=== PATIENT | female | born 1955 | race Caucasian/White ===

== ENCOUNTER 2017-06-19 08:10 | Day surgery (SDC) | payer MEDICARE, SELFPAY ==
--- NOTE | 2017-06-19 | EGD_PTH ---
PATIENT: SIMA PITTMAN LOC: EN U#:[id number] AGE/SX: 62/F ROOM: RE06/19/[address]: Dr. Keshawn Matos MD : 1955 BED: DIS: 06/19/2017 SPEC #: [id number] RECD: 06/19/17 14:05 STATUS: NADINE EDUAR #: [id number] MAYRA: 06/19/17 00:[address]: Keshawn Matos DEPT: SURGICAL PATHOLOGY RECD BY: Efren Herrera ENTERED: 06/19/17 14:06 SP TYPE: EGD BIOPSY DO DR: Dr. Cody Perez MD Tissues: A - Small intestine biopsy B - COLON BIOPSY Procedures: Surgery Specimen Level IV HEADER OPERATION: EGD, colonoscopy PRE-OP DIAGNOSIS: Abdominal pain, nausea, bloating TISSUE SUBMITTED: A ? Small bowel biopsy, B ? Random colon biopsies MICROSCOPIC DIAGNOSIS A. Small bowel biopsy: Fragments of small intestinal mucosa, no pathologic diagnosis. B. Colon, random biopsy: Focal acute colitis. See microscopic description and comment. SJ:marisela 06/20/17 COMMENT B. Clinical correlation and appropriate follow-up are suggested as clinically indicated. MICROSCOPIC DESCRIPTION Slides are reviewed. B. The specimen shows fragments of colonic mucosa with acute and chronic inflammatory cell infiltrates in the lamina propria, cryptitis and crypt abscesses. Glandular distortion and granulomas are not seen. The finding of focal acute colitis is usually an incidental finding. Rarely can it be associated with infectious, self limited colitis or inflammatory bowel disease. GROSS DESCRIPTION A - Received in fixative is one container labeled with the patient's name and designated small bowel biopsy. The specimen consists of two irregular fragments of light bryant soft tissue that in aggregate measure 0.6 x 0.3 x 0.1 cm. The specimen is totally submitted in one cassette. B - Received in fixative is one container labeled with the patient's name and designated random colon biopsy. The specimen consists of multiple irregular fragments of light bryant soft tissue that in aggregate measure 2 x 0.5 x 0.1 cm. The specimen is totally submitted in one cassette. / ELVIN:marisela 06/19/17 TC:2 CPT: 96667 x2
[2017-06-19 08:32] VITALS: BP 123/83; PULSE 72; RESP 16; TEMP 36.5; O2SAT 94; BMI 48.6
[2017-06-19 08:51] LABS: Bedside Glucose 191 mg/dL (70-110)
--- NOTE | 2017-06-19 10:07 | PCM.OPRPT ---
Problem List (1) Epigastric pain Status: Acute (2) Abdominal bloating Status: Acute (3) Nausea Status: Acute (4) Personal history of colonic polyps Status: Acute Report of Operation Date of Procedure: 06/19/17 Pre-Operative Diagnosis: Z86.010 personal history of colonic polyps. R1 0.13 epigastric abdominal pain. R14.0 abdominal bloating. R11.0 nausea Post-Operative Diagnosis: Same Surgery/Procedure Performed:: 32364 esophagogastroduodenoscopy [place] biopsy. 72035 colonoscopy with random colonic biopsies Type of Anesthesia:: MAC Anesthesiologist: Joey Ndiaye Description of Procedure: Back of the throat was sprayed with Cetacaine spray. A bite-block was placed. Patient was placed in the left lateral decubitus position. The patient was given graded anesthesia the scope was inserted in the back of the oropharynx and directed down through the esophagus into the stomach and into the duodenum without difficulty. Operative findings: 1. Duodenum: Normal appearance no mass lesions no ulcerations biopsy for celiac sprue was obtained 2. Stomach: Normal appearance minimal erythema was identified biopsy for H. pylori was obtained there were no ulcers there were no mass lesions patient had a normal prepyloric area. Retroflexion did not show any signs of a hiatal hernia. 3. Esophagus: Normal appearance no mass lesions no signs of esophagitis Scope was inserted into the rectum. The scope was directed through the sigmoid colon, descending colon, transverse colon, ascending colon, to the cecum. Operative findings: 1. Cecum: Normal appearance no mass lesions normal ileocecal valve. 2. Ascending colon: Normal appearance no mass lesions. 3. Transverse colon: Normal appearance no mass lesions. 4. descending colon: Normal appearance no mass lesions. 5. Sigmoid colon: Normal appearance no mass lesions. 6. Rectum: Normal appearance no mass lesions retroflexion did show some internal hemorrhoids no masses are identified. Digital rectal exam was performed showing no masses within the anus. Random colonic biopsies were performed. All of the mucosa throughout the colon looked normal. Patient will need to have another colonoscopy in 10 years. I will see the patient back in 1 week to go over the biopsies of both the small intestine and the colon. - Admit VTE Documentation VTE Present on Admission: No VTE Mechan Device Prophylaxis: None VTE Pharm Prophylaxis ordered?: No
[2017-06-19 10:10] VITALS: BP 123/83; BP 127/89; PULSE 73; RESP 16; TEMP 36.6; O2SAT 94
[2017-06-19 10:15] VITALS: BP 103/60; BP 123/83; PULSE 71; RESP 16; O2SAT 93
[2017-06-19 10:20] VITALS: BP 107/65; BP 123/83; PULSE 70; RESP 16; O2SAT 92
--- NOTE | 2017-06-19 10:20 | NURSING ---
pt passed flatus, turned to left lateral lying position, abd soft at this time, states less bloated.
[2017-06-19 10:25] VITALS: BP 112/53; BP 123/83; PULSE 68; RESP 16; TEMP 36.3; O2SAT 93
[2017-06-19 10:49] VITALS: BP 123/83
== END 2017-06-19 10:55 | disposition home or self-care (01) ==
LOC: EN 08:11 → AC 08:12
PROVIDERS: Family Provider Family Medicine; PCP Family Medicine; Visit Provider Surgery
PROC: 0DJD8ZZ Inspection of Lower Intestinal Tract, Via Natural or Artificial Opening Endoscopic (ICD-10-PCS; CPT 45378; principal; 2017-06-19 09:55)
DX: K52.9 Noninfective gastroenteritis and colitis, unspecified (principal); K58.9 Irritable bowel syndrome, unspecified; E11.9 Type 2 diabetes mellitus without complications; I10 Essential (primary) hypertension; E03.9 Hypothyroidism, unspecified; E78.5 Hyperlipidemia, unspecified; M79.7 Fibromyalgia; K21.9 Gastro-esophageal reflux disease without esophagitis; E66.9 Obesity, unspecified; F32.9 Major depressive disorder, single episode, unspecified; Z78.0 Asymptomatic menopausal state; Z79.899 Other long term (current) drug therapy; Z86.010 Personal history of colon polyps; Z79.84 Long term (current) use of oral hypoglycemic drugs; Z79.82 Long term (current) use of aspirin; Z90.49 Acquired absence of other specified parts of digestive tract; Z90.710 Acquired absence of both cervix and uterus; Z87.891 Personal history of nicotine dependence
CPT/HCPCS: 43239; 45380; 82962; 88305; J7120; J1610

== ENCOUNTER → 2017-06-29 08:56 | Outpatient (CLI) | payer MEDICARE, SELFPAY ==
[2017-06-22 12:46] LABS: Platelet Count 251 K/mm3 (150-450)
[2017-06-22 12:54] LABS: Partial Thromboplast Time 25.1 Seconds (24.1-36.2)
--- NOTE | 2017-06-29 | LIV_PTH ---
PATIENT: SIMA PITTMAN LOC: CT U#:[id number] AGE/SX: 69/F ROOM: RE06/29/[address]: Chanell Benjamin : 1955 BED: DIS: SPEC #: [id number] RECD: 06/29/17 14:24 STATUS: NADINE EDUAR #: [id number] MAYRA: 06/29/17 00:[address]: Chanell Benjamin DEPT: SURGICAL PATHOLOGY RECD BY: Efren Herrera ENTERED: 06/29/17 14:24 SP TYPE: LIVER RES OTHR DR: Dr. Cody Perez MD Tissues: Liver, NOS Procedures: PAS with Diastase (control) Trichrome (control) Special Stain Group II FE Group II (charge) PAS Stain (control) Surgery Specimen Level V Retic (control) HEADER OPERATION: CT-guided liver biopsy PRE-OP DIAGNOSIS: Cirrhosis TISSUE SUBMITTED: 18g core x3, right lobe liver MICROSCOPIC DIAGNOSIS Liver, CT-guided needle core biopsy: Cirrhosis. Mild to moderate steatosis, microvesicular and macrovesicular. Chronic hepatitis, grade 2. AM:marisela 07/04/17 COMMENT Case has been reviewed in consultation with Dr. Randle who concurs with the above diagnosis. IDC:ELVIN MICROSCOPIC DESCRIPTION Slides are reviewed. Sections show a cirrhotic liver confirmed by trichrome stain with matched control. PAS with and without diastase does not reveal accumulation of abnormal proteins. Iron stain with matched control does not reveal intraparenchymal deposition of iron. Reticulin stain reveals nodular collection of hepatocytes surrounded by increased dense bands of reticulin fibers consistent with cirrhosis; matched control is appropriate. GROSS DESCRIPTION Received in fixative is one container labeled with the patient's name and designated right lobe liver. The specimen consists of three elongated fragments of bryant soft tissue each measuring 1.8 cm in length and 0.1 cm in diameter. The specimen is totally submitted in one cassette. / ELVIN:marisela 06/29/17 TC:3 CPT: 36756, 09292 x5
--- NOTE | 2017-06-29 09:00 | CT_ITS ---
PROCEDURE: CT GUIDED liver biopsy. DATE: June 29, 2017. INDICATION: Female, 62 years old. Cirrhosis. PHYSICIAN: Andrei Leary M.D. RADIATION DOSAGE (If Supplied By Facility): CTDIvol = ( 20.4 ) mGy, DLP = ( 399.49 ) mGycm. Individualized dose optimization techniques were utilized. PROCEDURE: The risks, benefits, and alternatives to the procedure were explained to the patient. The specific risk of hemorrhage requiring further treatment or intervention was detailed and accepted. Follow-up instructions were discussed with the patient as well. Written informed consent was obtained. The patient was brought into the CT suite and placed in the supine position. . An appropriate entry site was identified. The overlying skin was prepped and draped in the usual sterile fashion. 1% lidocaine was administered subcutaneously for local anesthesia. The patient received 2 mg of Versed and 50 mcg of fentanyl intravenously. The conscious sedation protocol was followed. Conscious sedation was started at 10:07 AM and terminated at 10:19 AM. The patient was independently monitored by the department nurse. Under CT guidance, a total of 3 passes were performed utilizing an 18-gauge core biopsy needle. The specimens were then placed in the appropriate fluid and transported to the laboratory for analysis. Hemostasis was obtained. The patient tolerated the procedure well without immediate complications. CT/Biopsy/Inj or Needle Placement IMPRESSION: Successful CT guided biopsy of the right lobe of the liver, as described above. Electronically Signed: Andrei Leary MD at 10:59 EST Tel [phone], Service support ,
[2017-06-29 09:09] VITALS: BP 149/56; PULSE 69; RESP 14; TEMP 36.9; O2SAT 95; BMI 42.9
[2017-06-29 11:44] VITALS: BP 112/68; PULSE 76; RESP 16; O2SAT 92
== END ==
PROVIDERS: Family Provider Family Medicine; PCP Family Medicine; Visit Provider Nurse Practitioner Adult Health
DX: K74.60 Unspecified cirrhosis of liver (principal); R93.5 Abnormal findings on diagnostic imaging of other abdominal regions, including retroperitoneum
CPT/HCPCS: 47000; 36415; 77012; 85049; 85610; 85730; 88307; 88313; 99156; J7040; A4216

== ENCOUNTER → 2017-12-22 20:28 | Outpatient (CLI) | payer MEDICARE, SELFPAY | PROVIDERS: Family Provider Family Medicine; PCP Family Medicine; Visit Provider Family Medicine | DX: G47.33 Obstructive sleep apnea (adult) (pediatric) (principal) | CPT/HCPCS: 95810 ==

== ENCOUNTER 2018-04-28 21:22 | Emergency (ER) | payer MEDICARE, SELFPAY ==
[2018-04-28 21:23] VITALS: BP 145/74; PULSE 89; RESP 15; TEMP 36.8; BMI 42.0
--- NOTE | 2018-04-28 21:48 | CT_ITS ---
STUDY: CT ABDOMEN AND PELVIS WITHOUT CONTRAST REASON FOR EXAM: Female, 62 years old. Nausea, status post gastric bypass surgery 3 weeks ago RADIATION DOSAGE (If Supplied By Facility): CTDIvol = ( 21.70 ) mGy, DLP = ( 1089.67 ) mGycm TECHNIQUE: Transaxial images were obtained from the dome of the diaphragm to the symphysis pubis without oral contrast, and without intravenous contrast. Sagittal and coronal images were reconstructed. Individualized dose optimization techniques were used for this CT. COMPARISON: None. FINDINGS: The visualized lung bases are unremarkable. The visualized portions of the heart are within normal limits. Scattered punctate calcifications of the liver are likely postinflammatory, doubtful significance. No hepatic masses. There are surgical clips in the gallbladder fossa consistent with a prior cholecystectomy. Normal spleen. Normal pancreas. Normal bilateral adrenal glands. 2.4 cm right renal cyst. Normal left kidney. Patient is status post Reese-en-Y gastric bypass surgery. Minimal amount of perigastric induration identified but no perigastric fluid collection or extraluminal air. Linear densities in the anterior abdominal wall compatible with laparoscopic port sites. Normal small intestine. Normal colon. The appendix is visualized and appears normal. There is diffuse atherosclerotic calcification of the abdominal aorta, without a demonstrated aneurysm. Normal inferior vena cava. Normal retroperitoneum. Normal urinary bladder. There is absence of the uterus consistent with a prior hysterectomy. Normal abdominal wall. Grade 1 spondylolisthesis of L4-L5 due to facet arthropathy. CT/Abdomen/Pelvis without Cont IMPRESSION: 1. Status post gastric bypass surgery. Expected operative changes. No extraluminal gas or focal fluid collection. 2. Cholecystectomy, hysterectomy. Electronically Signed: Fady Maddox MD at 23:33 EST , Service support ,
[2018-04-28] MEDS: Ondansetron 4 MG/2 ML Vial IV (21:54)
[2018-04-28] MEDS: 0.9% Normal Saline 1,000 ML 1000 ML IV (21:54)
[2018-04-28 22:10] LABS: Red Blood Cells-Urine 0 SEEN /hpf (0-5)
[2018-04-28 22:16] LABS: Color, Urine Yellow (Yellow); Glucose, Dipstick Normal (Normal); Ketone-Dipstick 15 mg/dl (Negative); Leukocyte Esterase-Dipstick 500 /ul (Negative); Nitrite-Dipstick Negative (Negative); Occult Blood-Urine Negative /ul (Negative); Protein-Dipstick 30 mg/dl (Negative); Urine Bilirubin Dipstick Negative (Negative); Urine Clarity Cloudy (Clear); Urine Urobilinogen 1 mg/dl (Normal)
[2018-04-28 22:23] LABS: Absolute Lymphocyte Count 1.74 X10^3/ul (0.83-4.51); Absolute Neutrophil Count 6.2 X10^3/uL (2.0-7.7); Basophil# 0.03 X10^3/uL; Basophil% 0.3 % (0-1); Eosinophil# 0.12 X10^3/uL; Eosinophils% 1.4 % (0-5); Hematocrit 41.6 % (37-47); Hemoglobin 13.1 g/dl (12.0-15.0); Lymphocyte # 1.74 X10^3/ul (4.0); Lymphocyte % 20.1 % (19-41); Mean Corp Hgb Conc 31.5 g/gl (32-36); Mean Corpuscular Hgb 25.2 pg (27.0-32.0); Monocyte# 0.51 X10^3/uL; Monocyte% 5.9 % (0-10); Neutrophil # 6.24 X10^3/uL (2.7-7.7); Neutrophil % 72.2 % (47-70); Platelet Count 235 K/mm3 (150-450); RBC Distribution Width CV 17.4 % (11.6-14.6); RBC Distribution Width SD 51.7 fl (35.1-43.9); White Blood Count 8.7 K/mm3 (4.4-11.0)
[2018-04-28 22:24] LABS: Differential Indicated SCAN CRITERIA MET; POSITIVE COUNT NO; POSITIVE DIFFERENTIAL NO; POSITIVE MORPHOLOGY YES
[2018-04-28 22:28] LABS: Calcium Oxalate Crystals Ur 2+ /hpf (<or=2+); Hyaline Cast 0-5 SEEN /lpf (0-5); Mucous, Urine RARE /hpf (<or=2+); Squamous Epithelial Cells - UA 5-10 SEEN /hpf (5-10); White Blood Cells 0-5 SEEN /hpf (0-5)
[2018-04-28 22:29] LABS: ALB/GLOB Ratio 0.8 RATIO (0.9-2.4); AST(SGOT) 44 U/L (15-37); Alanine Aminotransfer ALT/SGPT 78 U/L (13-56); Albumin, Serum 3.4 g/dL (3.2-5.0); Alkaline Phosphatase 100 U/L (45-117); Anion Gap 13 (5-15); BUN 20 mg/dL (7-18); BUN/Creat Ratio 27.6 RATIO (10-20); Calcium,Total 9.1 mg/dL (8.5-10.1); Chloride 105 mmol/L (98-107); Creatinine, Serum 0.72 mg/dL (0.55-1.02); EST Glomerular Filtration Rate 86 mL/min (>60); Est Glom Filt Rate - Afr Amer 104 mL/min (>60); Globulin 4.2 g/dL (2.2-4.2); Glucose 100 mg/dL (74-106); Lipase 207 U/L (73-393); Potassium 4.1 mmol/L (3.5-5.1); Protein, Total 7.6 g/dL (6.4-8.2); Sodium Level 139 mmol/L (136-145)
[2018-04-28 22:30] LABS: Bacteria 1+ /hpf (None Seen)
[2018-04-28 22:39] LABS: Anisocytosis RARE; Microcytosis RARE; Platelet Estimate ADEQUATE (ADEQ); Platelet Morphology LARGE
--- NOTE | 2018-04-28 23:45 | ED.DCSUM_ITS ---
- ER Visit Summary Date of Service: 04/28/18 Chief Complaint: Abdominal pain, possible dehydration History of Present Illness: The patient is a 62 F who presents with abdominal pain and possible dehydration that became worse today. Patient states she has been having some nausea that became worse today. Patient states she has been unable to drink fluids because of the nausea. Patient states she feels like she may be dehydrated. Patient also admits to several episodes of watery diarrhea. Patient states she does have some pain over the right midabdomen over 1 of the incisions from her gastric bypass surgery. Patient states her gastric bypass surgery was done at the [facility]. Patient admits to subjective chills but denies any fevers. Physical Examination: Vital signs are stable. Patient is afebrile. Patient is in no acute distress. Oral mucosa is pink and moist. Neck is supple. Trachea is midline. There is no JVD noted. Heart with regular rate and rhythm. Lungs are clear and equal bilaterally. Abdomen is soft. There is some mild incisional tenderness in the right mid abdomen. There is no rebound or guarding noted. Cranial nerves II through XII are intact. There are no focal motor or sensory deficits noted. The remaining physical exam is within normal limits. Test Results: CBC and comprehensive metabolic profile within normal limits. Urinalysis shows leukocyte esterase of 500 but 0-5 white blood cells and 5-[address] scan of the abdomen and pelvis was obtained. There are postoperative changes but no acute process. Emergency Department Course and Treatment: Patient was given IV fluids here. Patient was given Zofran. Patient was feeling better on reevaluation. Patient states she does have Zofran at home that she forgot to use. Patient was instructed to use this as needed. Patient was instructed to chart with small amounts of liquids frequently and increase her diet as she starts to feel better. Patient was instructed to follow-up with her surgeon and her primary care physician in 5-7 days. Patient understood and was agreeable with the plan. All questions were answered. Disposition: Discharged home Impression: Abdominal pain Mild dehydration This note was generated with [employer] dictation software. It may contain incorrect words, spelling, and punctuation that were not noted in review of the chart prior to signing ED Disposition - Plan for ED Patient: Disposition: Home or Assisted Living Chief Complaint: Nausea/Vomiting Diagnosis: Abdominal pain, Dehydration, mild Instructions: ED Nausea Vomiting, ED Dehydration Referrals: Cody Perez MD [Primary Care Provider] -
[2018-04-28 23:52] VITALS: BP 140/80; PULSE 84; RESP 18; O2SAT 99
== END 2018-04-28 23:53 | disposition home or self-care (01) ==
PROVIDERS: Emergency Provider Emergency Medicine; Family Provider Family Medicine; PCP Family Medicine
DX: R10.9 Unspecified abdominal pain (principal); E86.0 Dehydration; R11.2 Nausea with vomiting, unspecified; R19.7 Diarrhea, unspecified; R11.0 Nausea; R51 Headache; J02.9 Acute pharyngitis, unspecified; R05 Cough; Z79.84 Long term (current) use of oral hypoglycemic drugs; Z79.899 Other long term (current) drug therapy; Z98.84 Bariatric surgery status
CPT/HCPCS: 74176; 80053; 81001; 83690; 85025; 96361; 96374; 99283; J7030; J2405

== ENCOUNTER → 2019-10-24 09:38 | Outpatient (CLI) | payer MEDICARE, SELFPAY ==
[2019-10-23 08:59] VITALS: BMI 36.1
[2019-10-24 08:16] VITALS: BMI 36.1
--- NOTE | 2019-10-24 09:41 | ECHOD_ITS ---
Reason For Study: CAD/ASHD Procedure This was a 2D Doppler, Color Flow transthoracic echocardiogram. Exam performed in department. Left Ventricle Normal LV size. Left ventricular systolic function is normal. The estimated ejection fraction is 55 %. No regional wall motion abnormalities noted. Right Ventricle Normal RV size. Normal systolic function. Atria Normal left atrium. Normal right atrium. Mitral Valve There is mild to moderate mitral annular calcification. Mild (1+) mitral valve insufficiency. Tricuspid Valve Normal tricuspid valve. Aortic Valve Normal aortic valve. Pulmonic Valve The pulmonic valve is not well visualized. Great Vessels Normal aortic root. The pulmonary artery is normal size. Normal inferior vena cava. Pericardium/Pleural No pericardial effusion. MMode/2D Measurements & Calculations LVIDd: 4.1 cm IVSd: 0.97 cm Ao root diam: 2.4 cm LVIDs: 2.6 cm LVPWd: 1.0 cm RVDd: 2.9 cm FS: 38.1 % LAV(MOD-bp): 35.0 ml LVAd ap4: 24.2 cm2 SV(MOD-sp4): 43.9 ml LAV(MOD-bp) Indexed: 17.9 ml/m2 EDV(MOD-sp4): 64.0 ml LAV(MOD-sp2): 37.4 ml EDV(sp4-el): 66.2 ml LAV(MOD-sp4): 30.7 ml LVAs ap4: 12.2 cm2 ESV(MOD-sp4): 20.1 ml ESV(sp4-el): 20.1 ml EF(MOD-sp4): 68.7 % EF(sp4-el): 69.6 % SV(sp4-el): 46.1 ml LA A4 area: 13.5 cm2 RA A4 area: 11.4 cm2 Doppler Measurements & Calculations MV E max dmitry: 84.2 cm/sec Lat Peak E' Dmitry: 10.7 cm/sec Med Peak E' Dmitry: 6.3 cm/sec MV A max dmitry: 80.4 cm/sec E/E' lat: 7.9 E/E' med: 13.4 MV E/A: 1.0 Ao V2 max: 126.2 cm/sec LV V1 max: 106.1 cm/sec PA V2 max: 104.8 cm/sec Ao max P.4 mmHg LV V1 max P.5 mmHg Ao V2 mean: 92.5 cm/sec Ao mean P.7 mmHg Ao V2 VTI: 27.3 cm Interpretation Summary Normal LV size. Left ventricular systolic function is normal. The estimated ejection fraction is 55 %. There is mild to moderate mitral annular calcification. Mild (1+) mitral valve insufficiency. Ordering Physician: Pranav Siegel Referring Physician: Cody Perez Performed By: Gladys Springer, RDCS, RVT
== END ==
PROVIDERS: PCP Family Medicine; Referring Provider Internal Medicine Cardiovascular Disease; Visit Provider Internal Medicine Cardiovascular Disease
DX: R07.9 Chest pain, unspecified (principal); I25.10 Atherosclerotic heart disease of native coronary artery without angina pectoris; I34.0 Nonrheumatic mitral (valve) insufficiency
CPT/HCPCS: 93306

== ENCOUNTER 2019-10-28 08:54 | Day surgery (SDC) | payer MEDICARE, SELFPAY ==
[2019-10-23 08:59] VITALS: BMI 36.1
[2019-10-23 11:06] LABS: Absolute Lymphocyte Count 2.25 X10^3/uL (0.83-4.51); Absolute Neutrophil Count 4.1 X10^3/uL (2.0-7.7); Basophil# 0.04 X10^3/uL; Basophil% 0.6 % (0-1); Eosinophil# 0.17 X10^3/uL; Eosinophils% 2.4 % (0-5); Hematocrit 43.4 % (37-47); Hemoglobin 13.2 g/dL (12.0-15.0); Lymphocyte # 2.25 X10^3/ul (4.0); Lymphocyte % 31.7 % (19-41); Mean Corp Hgb Conc 30.4 g/dL (32-36); Mean Corpuscular Hgb 27.2 pg (27.0-32.0); Mean Corpuscular Volume 89.3 fL (81-99); Mean Platelet Vol. 11.7 fl (6.2-12.0); Monocyte# 0.54 X10^3/uL; Monocyte% 7.6 % (0-10); NRBC Flagged by Analyzer 0 % (0-5); Neutrophil # 4.09 X10^3/uL (2.7-7.7); Neutrophil % 57.6 % (47-70); Platelet Count 183 K/mm3 (150-450); RBC Distribution Width CV 14.3 % (11.6-14.6); RBC Distribution Width SD 45.5 fl (35.1-43.9); Red Blood Count 4.86 M/mm3 (4.2-5.4); White Blood Count 7.1 K/mm3 (4.4-11.0)
[2019-10-23 11:59] LABS: Anion Gap 4 (5-15); BUN 22 mg/dL (7-18); BUN/Creat Ratio 37.4 RATIO (10-20); Calcium,Total 9.2 mg/dL (8.5-10.1); Chloride 107 mmol/L (98-107); Creatinine, Serum 0.59 mg/dL (0.55-1.02); EST Glomerular Filtration Rate 109 mL/min (>60); Est Glom Filt Rate - Afr Amer 132 mL/min (>60); Glucose 98 mg/dL (74-106); Potassium 4.2 mmol/L (3.5-5.1); Sodium Level 139 mmol/L (136-145)
[2019-10-24 08:16] VITALS: BMI 36.1
--- NOTE | 2019-10-28 10:17 | CL.D_ITS ---
Patient Name: SIMA PITTMAN Study Date: 10/28/2019 Performing: Pranav Siegel MD Ht: 62.99 inches 160 cm : 1955 Wt: 205.03 lbs 93 kg Age: 64 Gender: female BSA: 1.95 PROCEDURE(S) PERFORMED MP45-LPS/COR/LV CLINICAL PROFILE AND INDICATIONS Indications: Suspected CAD Heart Failure: None Stress/Imaging Stress Test w/SPECT MPI: Yes Result: Positive Intermediate RiskStress Test with SP ECT MPI: Positive Intermediate RiskStress/Image Study Performed: No CAD Presentations: Symptom unlikely to be ischemic. CONCLUSIONS Moderate right coronary artery disease with calcification noted of the left anterior descending arter y system. Mild disease noted in the other arterial system. Preserved ejection fraction RECOMMENDATIONS Will start and maximize medical therapy and consider stress test if patient has symptoms that may sug gest angina. DESCRIPTION OF PROCEDURE The patient arrived to the procedure lab. The risks and benefits of the procedure as well as a full d escription of our services here and current unavailability of surgical backup were fully explained to the patient and/or their significant other prior to the catheterization. The Timeout was completed, verifying the correct patient and procedure. The patient's procedural site was prepped and draped in the usual fashion. Local anesthetic was given subcutaneously to right groin region with Lidocaine 2%. Using a modified Seldinger technique, arterial access was obtained via the right femoral artery, a 5 Fr sheath was inserted. Left Coronary Artery selective angiography was performed in multiple views u sing a 5 Fr. JL4 catheter. Right Coronary Artery selective angiography was then performed in multiple views using a 5 Fr. 3DRC (Tao) catheter. Left Ventriculography was performed in AARON projection using a 5 Fr. Pigtail catheter. LV to AO pullback pressures were then recorded.The arterial sheath was pulled and manual compression applied until hemostasis is achieved. CORONARY ANGIOGRAPHY DOMINANCE: Right Dominant LEFT HEART ASSESSMENT Left Ventricular Ejection Fraction: by LV Gram 60 % Normal LV wall motion Normal Left Ventricular systolic function LEFT MAIN: 20 % Stenosis LEFT ANTERIOR DESCENDING ARTERY: Mild luminal irregularities CIRCUMFLEX ARTERY: Mild luminal irregularities RAMUS: Mild luminal irregularities RIGHT CORONARY ARTERY: PROX RCA: 50 % Stenosis COMPLICATIONS No Complications PROCEDURE MEDICATIONS Versed 1 mg IV Versed 1 mg IV Versed 1 mg IV Oxygen: 2 L/min via nasal cannula SUMMARY OF HEMODYNAMIC DATA Time AIR REST ECG 09:09:25 AO 143/76 (105) SA 09:47:13 LV 133/7, 13 09:54:34 LV 124/5, 13 09:54:40 LV 129/9, 17 09:55:19 LVp 132/11, 18 09:55:25 AOp 136/70 (98) 09:55:30 Signed By Pranav Siegel MD On 10/28/2019 10:16:26 Pranav Siegel MD
== END 2019-10-28 15:30 | disposition home or self-care (01) ==
LOC: CLSP 08:55
PROVIDERS: PCP Family Medicine; Referring Provider Internal Medicine Cardiovascular Disease; Visit Provider Internal Medicine Cardiovascular Disease
DX: I25.10 Atherosclerotic heart disease of native coronary artery without angina pectoris (principal); R07.9 Chest pain, unspecified; I10 Essential (primary) hypertension; E78.5 Hyperlipidemia, unspecified; K75.81 Nonalcoholic steatohepatitis (NASH); E11.9 Type 2 diabetes mellitus without complications; E03.9 Hypothyroidism, unspecified; I73.9 Peripheral vascular disease, unspecified; G47.33 Obstructive sleep apnea (adult) (pediatric); M79.7 Fibromyalgia; K21.9 Gastro-esophageal reflux disease without esophagitis; F32.9 Major depressive disorder, single episode, unspecified; E66.9 Obesity, unspecified; Z79.02 Long term (current) use of antithrombotics/antiplatelets; Z79.82 Long term (current) use of aspirin; Z79.899 Other long term (current) drug therapy; Z98.84 Bariatric surgery status; Z87.891 Personal history of nicotine dependence
CPT/HCPCS: 36415; 80048; 85025; 93458; 99152; 99153; J7040; C1769; Q9967

== ENCOUNTER → 2020-09-11 08:11 | Outpatient (CLI) | payer MEDICARE, SELFPAY ==
[2020-01-28 09:47] VITALS: BMI 36.3
--- NOTE | 2020-09-11 08:42 | BI_ITS ---
MAMMOGRAPHY - BILATERAL SCREENING 3-D TOMOSYNTHESIS REASON FOR EXAM: Female, 65 years old. Routine screening PERTINENT HISTORY: Aunts with breast cancer.. TECHNIQUE: 2-D mammograms and 3-D Tomosynthesis of the breast (s) were performed. CAD was performed. COMPARISON: 07/02/2019 FINDINGS: The breast composition is composed of scattered fibroglandular density. Scattered benign calcifications are seen. No dense spiculated masses or suspicious microcalcifications are identified. No architectural distortion is identified. There is no skin thickening or retraction. There has been no significant change since the prior study. BI/SCRN MAMM (CAD)W/TAMIA BILAT IMPRESSION: No mammographic signs of malignancy. Routine yearly mammograms recommended. ASSESSMENT CATEGORY: BIRADS Category 1: Negative. A letter regarding these results will be sent to the patient by the facility within 30 days. FOLLOW UP RECOMMENDATION: Yearly follow up mammogram recommended. (A) Approximately 10% of breast cancers are not detected by mammography. A normal mammogram should not delay biopsy of a clinically suspicious abnormality. Electronically Signed: Niko Villalpando MD at 12:45 EDT , Service support ,
== END ==
PROVIDERS: PCP Family Medicine; Referring Provider Physician Assistant; Visit Provider Physician Assistant
DX: Z12.31 Encounter for screening mammogram for malignant neoplasm of breast (principal)
CPT/HCPCS: 77063; 77067

== ENCOUNTER → 2021-09-06 | Outpatient (CLI) | payer MEDICARE, SELFPAY ==
--- NOTE | 2021-09-06 09:18 | BI_ITS ---
MAMMOGRAPHY - UNILATERAL DIAGNOSTIC: LEFT BREAST REASON FOR EXAM: Female, 66 years old. Pain in the lower outer quadrant of the left breast for 2 weeks. PERTINENT HISTORY: Aunts with breast cancer. TECHNIQUE: Digital unilateral breast radha (3D mammographic acquisition) in the CC and MLO projections. 2-D mediolateral oblique (MLO) and craniocaudad (CC) views of both breasts were obtained. CAD: Full Field Digital Mammography with Computer Added Detection was performed. COMPARISON: Comparison is made with prior study dated 09/11/2020 and outside examination 01/26/2021. FINDINGS: Breast Composition: There are scattered areas of fibroglandular density. There are no dominant masses or suspicious calcifications. Stable small benign-appearing left axillary lymph nodes. No other significant abnormalities are identified. There has been no significant change since the prior study. BI/DIAG MAMM W/CAD, UNILAT IMPRESSION: Stable unilateral diagnostic mammogram. With the patient''s history of pain in the lower outer quadrant of the left breast, correlation with ultrasound is recommended. ASSESSMENT CATEGORY: BIRADS Category 0: Incomplete. Need additional imaging evaluation. A letter regarding these results will be sent to the patient by the facility within 30 days. Approximately 10% of breast cancers are not detected by mammography. A normal mammogram should not delay biopsy of a clinically suspicious abnormality. Electronically Signed: Andrei Leary MD at 8:28 EDT ,
--- NOTE | 2021-09-06 09:24 | US_ITS ---
STUDY: ULTRASOUND BREAST - LEFT REASON FOR EXAM: Female, 66 years old. Pain in the left breast. TECHNIQUE: Axial and longitudinal images of the LEFT breast were performed with a high resolution ultrasound transducer. # OF IMAGES: 36 COMPARISON: Comparison is made with prior mammogram dated 09/11/2020. FINDINGS: LEFT Breast: The lower outer quadrant of the left breast was examined by ultrasound. No sonographic abnormality is seen. US/Breast Limited Unilateral IMPRESSION: No sonographic abnormality is seen. ASSESSMENT CATEGORY: BIRADS Category 1: Negative. A letter regarding these results will be sent to the patient by the facility within 30 days. Electronically Signed: Andrei Leary MD at 12:46 EDT ,
== END | disposition home or self-care (01) ==
LOC: OPBI 09:15
PROVIDERS: PCP Family Medicine; Visit Provider Nurse Practitioner Family
DX: R92.2 Inconclusive mammogram (principal); N64.4 Mastodynia
CPT/HCPCS: 76642; 77061; 77065; G0279

== ENCOUNTER → 2022-05-19 | Outpatient (CLI) | payer MEDICARE, SELFPAY ==
--- NOTE | 2022-05-19 11:09 | STRESSREP ---
Stress Test Report Pharmacologic myocardial perfusion stress test. 66-year-old lady with a history of chest pain Resting EKG demonstrates sinus bradycardia with a rate of 55 bpm. Resting blood pressure is 120/72 mmHg. 0.4 mg of regadenoson was infused per usual protocol followed by rapid intravenous saline flush injection. Continuous EKG monitoring was performed. The maximum heart rate was 75 bpm which was 49% of max impacted heart rate the maximum workload was 1 metabolic equivalent. At rest there were no ST or T wave changes noted to suggest ischemia and at peak infusion nonspecific ST changes were noted which did not meet the criteria for ischemia. No clinical angina is noted. The final blood pressure was 116/70 mmHg. Myocardial perfusion protocol. 14.2 mCi of technetium 99m sestamibi was injected at rest. 0.4 mg of regadenoson was infused per usual protocol. At peak infusion 44.3 mCi of technetium 99m sestamibi was injected stress images were obtained stress and rest images were reconstructed and compared in the short axis vertical long and horizontal long axis. Gated images were also obtained. Perfusion SPECT analysis: Review of the stress images demonstrate normal uptake of tracer noted in all areas of the myocardium. The resting images similar demonstrated normal uptake of tracer noted in all areas of the myocardium. No areas of reversibility are noted to suggest ischemia and no previous infarct is noted. Gated SPECT analysis: The gated ejection fraction is 68. Conclusion: Normal pharmacologic myocardial perfusion stress test. Preserved ejection fraction.
== END | disposition home or self-care (01) ==
PROVIDERS: PCP Family Medicine; Visit Provider Nurse Practitioner Family
DX: R07.9 Chest pain, unspecified (principal); I10 Essential (primary) hypertension; E78.5 Hyperlipidemia, unspecified
CPT/HCPCS: 78452; 93017; A9500; A4216; J2785

== ENCOUNTER 2023-07-24 10:49 | Emergency (ER) | payer MEDICARE, SELFPAY ==
[2023-07-24 10:50] VITALS: BP 171/88; PULSE 73; RESP 16; TEMP 36.8; O2SAT 98; BMI 34.5
[2023-07-24 11:00] VITALS: PULSE 63; RESP 16; O2SAT 100
--- NOTE | 2023-07-24 11:01 | RAD_ITS ---
INDICATION: Shortness of breath EXAMINATION/TECHNIQUE: X-RAY - XR Chest 1 View COMPARISON: No relevant prior comparison study available FINDINGS: LINES/DEVICES: None. LUNGS: No consolidation, edema or effusion. No pneumothorax. MEDIASTINUM AND CARDIOVASCULAR STRUCTURES: Cardiac silhouette not enlarged. Central airways and mediastinal contour are unremarkable. BONES AND SOFT TISSUES: Unremarkable. RAD/Chest 1 View (Portable) IMPRESSION: No radiographic evidence of acute cardiopulmonary disease. Electronically Signed: Mary Benavides MD at 11:42 EDT ,
--- NOTE | 2023-07-24 11:01 | EKG12_ITS ---
Test Reason : PALP Blood Pressure : / mmHG Vent. Rate : 061 BPM Atrial Rate : 000 BPM P-R Int : 000 ms QRS Dur : 074 ms QT Int : 406 ms P-R-T Axes : 000 -02 028 degrees QTc Int : 408 ms Normal sinus rhythm with 1st degree A-V block Borderline Confirmed by Romeo Foster ([id number]), health editor SANCHO GLEASON ([id number]) on 07/25/2023 10:12:53 AM Referred By: AMBERLY/MONO Confirmed By:Romeo oFster
--- NOTE | 2023-07-24 11:05 | EX.ED.DYSGE1 ---
HPI History of Present Illness Chief Complaint: Palpitations Informant: patient Narrative Narrative: Patient presents with a 4-day history of intermittent palpitations. She states that she will suddenly feel her heart is racing, become short of breath, and feels she might pass out. Symptoms lasted only for seconds or so and then they resolved. She called her cardiology office this morning and they encouraged her to come to the emergency room. Patient reported does have history of moderate coronary disease. She denies any recent changes to her medications. She is currently on thyroid medication but states this has been stable for some time as well. [facility] Medical History Atherosclerosis of coronary artery without angina pectoris BRCA1 positive BRCA2 gene mutation positive Chronic pain of right upper extremity Depression Diabetes mellitus Essential hypertension Fibromyalgia Gastritis GERD (gastroesophageal reflux disease) Hyperlipidemia Hypothyroidism Liver cirrhosis Lung nodule CHOWDARY (nonalcoholic steatohepatitis) Nicotine dependence Nicotine dependence in remission Obesity Obstructive sleep apnea Osteoporosis Personal history of colonic polyps Pseudotumor cerebri PVD (peripheral vascular disease) Home Medications dorzolamide 22.3 mg-timolol 6.8 mg/mL eye drops 1 drp EACH EYE BID 03/14/14 [History Last Taken Unknown] pantoprazole 40 mg tablet,delayed release 40 mg PO DAILY 03/14/14 [History Last Taken 10/28/19] latanoprost 0.005 % eye drops 1 drp OP QHS 04/28/18 [History Last Taken Unknown] aspirin 81 mg tablet,delayed release (Adult Aspirin Regimen) 81 mg PO DAILY 10/22/19 [History Last Taken 10/28/19] cyanocobalamin (vitamin B-12) 1,000 mcg capsule 1,000 mcg PO DAILY 10/22/19 [History Last Taken Unknown] levothyroxine 137 mcg tablet 137 mcg PO DAILY 10/22/19 [History Last Taken 10/28/19] multivitamin 1 tab PO DAILY 10/22/19 [History Last Taken Unknown] alprazolam 0.5 mg tablet 0.5 mg PO QHS 10/23/19 [History Last Taken Unknown] ergocalciferol (vitamin D2) 1,250 mcg (50,000 unit) capsule 1,250 mcg PO QWEEK 09/27/21 [History Last Taken Unknown] metoprolol succinate 50 mg tablet,extended release 24 hr (Toprol XL) 50 mg PO DAILY #90 tabs 09/27/21 [Rx Last Taken Unknown] topiramate 25 mg tablet 25 mg PO BID 09/27/21 [History Last Taken Unknown] dulaglutide 0.75 mg/0.5 mL subcutaneous pen injector (Trulicity) 0.75 mg subcut QWEEK 01/20/22 [History Last Taken Unknown] rosuvastatin 20 mg tablet 20 mg PO DAILY 01/20/22 [History Last Taken Unknown] Allergy/AdvReac Type Severity Reaction Status Date / Time glycerin Allergy Anaphylaxis Verified 07/24/23 10:52 moxifloxacin HCl Allergy Anaphylaxis Verified 07/24/23 10:52 [From Avelox] cimetidine HCl [From Tagamet] AdvReac Pain in Verified 07/24/23 10:52 joints Family History Mother Cancer Hypertension Arthritis Ovarian cancer Father Arthritis Cancer Hypertension Myocardial infarction, Onset Age: 66 Sister Arthritis Cancer Hypertension Seizures Thyroid disorder Ulcer Ovarian cancer Brother Diabetes Hypertension Arthritis CVA (cerebral vascular accident), Onset Age: 64 Sister Ovarian cancer Surgical History History of carpal tunnel release History of cholecystectomy History of colonoscopy History of esophagogastroduodenoscopy (EGD) History of gastric bypass (03/2018) History of hysterectomy History of left heart catheterization (10/28/19) History of tonsillectomy Social History Smoking Status: Former smoker Tobacco: How many years used: 35 second hand exposure: No alcohol intake: never substance use type: does not use caffeine: No what type of physical activity do you participate in: none frequency: does not exercise seatbelt use: always ROS ROS ED Constitutional Constitutional ED: Denies chills or fever(s) Eyes Eyes: Denies change in vision or discharge from eye(s) ENT ENT ED: Denies discharge from eye(s), rhinorrhea or sore throat Cardiovascular Cardiovascular: Reports chest pain, palpitations and racing heartbeat Respiratory/Chest Respiratory/Chest: Reports dyspnea; Denies cough Gastrointestinal Gastrointestinal: Denies abdominal pain, nausea or vomiting Genitourinary Genitourinary ED: Denies dysuria Musculoskeletal Musculoskeletal: Denies back pain or extremity pain Integumentary Denies Abrasions or rash Neurologic Neurologic: Denies headache(s) or weakness Psychiatric Psychiatric: Denies anxiety or depression Allergic/Immunologic Allergic/Immunologic ED: Denies lip swelling or urticaria EXAM Physical Exam Const Vital Signs: 07/24/23 10:50 07/24/23 10:50 07/24/23 11:00 Temperature 98.2 F 98.2 F Temperature Source Temporal Temporal Pulse Rate 73 73 63 Respiratory Rate 16 16 16 Blood Pressure 171/88 H 171/88 H Blood Pressure Mean 115 115 Pulse Ox 98 98 100 Oxygen Delivery Method Room Air Room Air Room Air 07/24/23 12:09 Temperature Temperature Source Pulse Rate 59 L Respiratory Rate 14 Blood Pressure 112/71 Blood Pressure Mean 84 Pulse Ox 100 Oxygen Delivery Method Room Air Positive well nourished and well developed General Appearance ED: well developed HEENT Reports moist mucous membranes Eyes EOMs intact bilaterally Chest Wall inspection of chest normal and palpation of chest normal Resp normal respiratory effort and clear to auscultation bilaterally Cardio regular rate and regular rhythm GI non-tender Palpation: soft Extremity normal to inspection Neuro oriented x3 and no sensory deficits noted Motor Exam: strength 5/5 throughout Psych mental status grossly normal Skin no rashes or lesions noted MDM MDM MDM Narrative Medical decision making narrative: Patient placed on cardiac catheterization technologist. EKG obtained to evaluate for cardiac arrhythmia/ischemia. IV line established. Labwork obtained to evaluate for leukocytosis, anemia, and electrolyte derangement. Chest x-ray obtained to evaluate for acute lung pathology, cardiac size, or mediastinal abnormality. History & Record Review Discussion w/independent historian: Patient Additional record(s) reviewed:: Prior outpatient record and Prior labs Lab Data Attestation: I reviewed the patient's lab results. Labs: Laboratory Results - last 24 hr 07/24/23 11:20 WBC 5.8 RBC 4.97 Hgb 12.4 Hct 40.2 MCV 80.9 L MCH 24.9 L MCHC 30.8 L RDW Std Deviation 50.1 H RDW Coeff of Meagan 17.1 H Plt Count 169 MPV 11.2 Immature Gran % (Auto) 0.300 Neut % (Auto) 55.6 Lymph % (Auto) 37.3 [place] % (Auto) 4.8 Eos % (Auto) 1.7 Baso % (Auto) 0.3 Absolute Neuts (auto) 3.2 Absolute Lymphs (auto) 2.18 Nucleated RBC % 0 Sodium 141 Potassium 4.0 Chloride 111 H Carbon Dioxide 27.0 Anion Gap 3 L BUN 14 Creatinine 0.66 Estim Creat Clear Calc 69.02 Est GFR (MDRD) Af Amer 113 Est GFR (MDRD) Non-Af 94 BUN/Creatinine Ratio 21.1 H Glucose 92 Calcium 8.7 Magnesium 2.3 Troponin I High Sens 7 TSH 1.68 Radiography Diagnostic Testing: Clinical Impression(s) from Imaging Studies Chest X-Ray 07/24/23 11:01 IMPRESSION: No radiographic evidence of acute cardiopulmonary disease. Electronically Signed: Mary Benavides MD at 11:42 EDT , EKG Initial EKG: Attestation: I personally reviewed and interpreted this EKG as follows: Interpretation: Sinus Rhythm (Sinus at 61 with no acute ischemia.) Treatment and Re-Evaluation :: CBC reveals normal white count 5.8 with a hemoglobin of 12.4. Chemistry studies unremarkable with normal renal function. Potassium is normal at 4.0. Magnesium is normal at 2.3. Troponin is normal at 7 and TSH is normal at 1.68. Portable chest x-ray per my interpretation reveals no acute abnormalities. Radiology interpretation reviewed and agrees. On repeat evaluation patient resting comfortably. She states she has had a couple episodes where she felt slightly lightheaded but has not had any episodes of feeling her heart was racing while here in the emergency room. I spoke with Dr. Foster, on-call for cardiology. We will place a 48-hour Holter monitor and patient is to follow-up in the office in 1 week. Return instructions provided. Discharge Plan Triage Chief Complaint: Palpitations ED Provider: Marycruz Chapa Dx/Rx/DC Orders Clinical Impression: Palpitations Instructions: ED Palpitations Prescriptions: No Action alprazolam 0.5 mg tablet 0.5 mg PO QHS Patient Comments: TAKE 1 TABLET BY MOUTH AT BEDTIME NEEDED aspirin [Adult Aspirin Regimen] 81 mg tablet,delayed release (DR/EC) 81 mg PO DAILY cyanocobalamin (vitamin B-12) 1,000 mcg capsule 1,000 mcg PO DAILY levothyroxine 137 mcg tablet 137 mcg PO DAILY multivitamin Tablet 1 tab PO DAILY ergocalciferol (vitamin D2) 1,250 mcg (50,000 unit) capsule 1,250 mcg PO QWEEK Patient Comments: TAKE 1 CAPSULE BY MOUTH ONCE A WEEK topiramate 25 mg tablet 25 mg PO BID Patient Comments: TAKE 1 TABLET BY MOUTH TWICE DAILY metoprolol succinate [Toprol XL] 50 mg tablet extended release 24 hr 50 mg PO DAILY Qty: 90 3RF rosuvastatin 20 mg tablet 20 mg PO DAILY Trulicity 0.75 mg/0.5 mL pen injector 0.75 mg subcut QWEEK Patient Comments: INJECT THE CONTENTS OF 1 SYRINGE SUBCUTANEOUSLY ONCE A WEEK pantoprazole 40 MG tablet 40 mg PO DAILY dorzolamide-timolol 10 ML drops 1 drp EACH EYE BID latanoprost 2.5 ML drops 1 drp OP QHS Primary Care Provider: Cody Perez Referrals: Pranav Siegel MD [Med Staff - Active Staff] - 1 Week Cody Perez MD [Primary Care Provider] - Disposition Disposition: Home, Self Care
[2023-07-24] MEDS: 0.9% Normal Saline (1000mL) 1,000 ML 150 ML IV (11:23)
[2023-07-24 11:33] LABS: Absolute Lymphocyte Count 2.18 X10^3/uL (0.83-4.51); Absolute Neutrophil Count 3.2 X10^3/uL (2.0-7.7); Basophil# 0.02 X10^3/uL; Basophil% 0.3 % (0-1); Eosinophils% 1.7 % (0-5); Hematocrit 40.2 % (37-47); Hemoglobin 12.4 g/dL (12.0-15.0); Lymphocyte # 2.18 X10^3/ul (0.83-4.51); Lymphocyte % 37.3 % (19-41); Mean Corp Hgb Conc 30.8 g/dL (32-36); Mean Corpuscular Hgb 24.9 pg (27.0-32.0); Mean Corpuscular Volume 80.9 fL (81-99); Mean Platelet Vol. 11.2 fl (6.2-12.0); Monocyte# 0.28 X10^3/uL; Monocyte% 4.8 % (0-10); NRBC Flagged by Analyzer 0 % (0-5); Neutrophil # 3.24 X10^3/uL (2.7-7.7); Neutrophil % 55.6 % (47-70); Platelet Count 169 K/mm3 (150-450); RBC Distribution Width CV 17.1 % (11.6-14.6); RBC Distribution Width SD 50.1 fl (35.1-43.9); Red Blood Count 4.97 M/mm3 (4.2-5.4); White Blood Count 5.8 K/mm3 (4.4-11.0)
[2023-07-24 11:53] LABS: Anion Gap 3 (5-15); BUN 14 mg/dL (7-18); BUN/Creat Ratio 21.1 RATIO (10-20); Calcium,Total 8.7 mg/dL (8.5-10.1); Chloride 111 mmol/L (98-107); Creatinine, Serum 0.66 mg/dL (0.55-1.02); EST Glomerular Filtration Rate 94 mL/min (>60); Est Glom Filt Rate - Afr Amer 113 mL/min (>60); Estimated Creatinine Clearance 69.02 ml/min; Glucose 92 mg/dL (74-106); Magnesium 2.3 mg/dL (1.6-2.6); Sodium Level 141 mmol/L (136-145); Thyroid Stim Hormone (TSH) 1.68 uIU/mL (0.358-3.74); Troponin-I HS 7 pg/mL (3.0-54.0)
[2023-07-24 12:09] VITALS: BP 112/71; PULSE 59; RESP 14; O2SAT 100
[2023-07-24 13:05] VITALS: BP 122/72; PULSE 59; RESP 14; TEMP 36.7; O2SAT 100
== END 2023-07-24 13:08 | disposition home or self-care (01) ==
PROVIDERS: Emergency Provider Emergency Medicine; PCP Family Medicine; Visit Provider Emergency Medicine
DX: R00.2 Palpitations (principal); E11.9 Type 2 diabetes mellitus without complications; R06.02 Shortness of breath; I25.10 Atherosclerotic heart disease of native coronary artery without angina pectoris; I10 Essential (primary) hypertension; E78.5 Hyperlipidemia, unspecified; E03.9 Hypothyroidism, unspecified; K21.9 Gastro-esophageal reflux disease without esophagitis; G47.33 Obstructive sleep apnea (adult) (pediatric); Z79.82 Long term (current) use of aspirin; Z79.85 Long-term (current) use of injectable non-insulin antidiabetic drugs; Z79.890 Hormone replacement therapy; Z79.899 Other long term (current) drug therapy; Z87.891 Personal history of nicotine dependence
CPT/HCPCS: 71045; 80048; 83735; 84443; 84484; 85025; 93005; 96360; 96361; 99283; J7030; A4216

== ENCOUNTER → 2023-07-24 | Outpatient (CLI) | payer MEDICARE, SELFPAY | END | disposition home or self-care (01) | PROVIDERS: PCP Family Medicine; Visit Provider Emergency Medicine | DX: R00.2 Palpitations (principal) | CPT/HCPCS: 93225; 93226 ==

== ENCOUNTER 2024-05-11 13:45 | Emergency (ER) | payer MEDICARE, SELFPAY ==
[2024-05-11 13:46] VITALS: BP 143/75; PULSE 62; RESP 15; TEMP 36.6; O2SAT 97
[2024-05-11 13:48] VITALS: BMI 36.6
--- NOTE | 2024-05-11 14:21 | EDS_ITS ---
HPI HPI - Fall History of Present Illness Chief Complaint: Fall Informant: patient Occured/Mechanism Occurred: Today and Hours Mechanism/Context: Yes same level fall and Yes slip Usually ambulates: Without assistance Pain/Injury Pain Location: lower extremity Quality of Pain: Sharp Current Severity: Moderate Maximum Severity: Moderate Associated Symptoms Associated Symptoms: Positive for Inability to ambulate; Negative for Parasth esias, Weakness, Loss of function, Loss of consciousness or Amnesia Narrative Narrative: 68-year-old female slipped and fell coming out of post office today. Injuring her right mid femur. No LOC. No blood thinners. She struck her chin. She is not complaining of any chin or face pain. No other recent complaints. No prior hip or femur surgery. Prior similar symptoms: No Recent Illness/Hospitalization: No PFSH PFSH Medical History Liver cirrhosis Chest pain Dyspnea on minimal exertion Elevated LFTs Osteoporosis Lung nodule Rapid palpitations BRCA2 gene mutation positive Atherosclerosis of coronary artery without angina pectoris PVD (peripheral vascular disease) CHOWDARY (nonalcoholic steatohepatitis) Pseudotumor cerebri Chronic pain of right upper extremity Nicotine dependence in remission Obstructive sleep apnea Nicotine dependence BRCA1 positive Essential hypertension Personal history of colonic polyps Diabetes mellitus Obesity Hyperlipidemia Hypothyroidism GERD (gastroesophageal reflux disease) Gastritis Depression Fibromyalgia Home Medications ?Medication ?Instructions ?Recorded ?Last Taken ?Type dorzolamide 22.3 mg-timolol 6.8 1 drp EACH EYE BID 03/14/14 Unknown History mg/mL eye drops pantoprazole 40 mg tablet,delayed 40 mg PO DAILY 03/14/14 10/28/19 History release latanoprost 0.005 % eye drops 1 drp OP QHS 04/28/18 Unknown History aspirin 81 mg tablet,delayed 81 mg PO DAILY 10/22/19 10/28/19 History release (Adult Aspirin Regimen) cyanocobalamin (vitamin B-12) 1,000 mcg PO DAILY 10/22/19 Unknown History 1,000 mcg capsule levothyroxine 137 mcg tablet 137 mcg PO DAILY 10/22/19 10/28/19 History multivitamin 1 tab PO DAILY 10/22/19 Unknown History alprazolam 0.5 mg tablet 0.5 mg PO QHS 10/23/19 Unknown History ergocalciferol (vitamin D2) 1,250 1,250 mcg PO QWEEK 09/27/21 Unknown History mcg (50,000 unit) capsule metoprolol succinate 50 mg 50 mg PO DAILY #90 tabs 09/27/21 Unknown Rx tablet,extended release 24 hr (Toprol XL) topiramate 25 mg tablet 25 mg PO BID 09/27/21 Unknown History rosuvastatin 20 mg tablet 20 mg PO DAILY 01/20/22 Unknown History dulaglutide 1.5 mg/0.5 mL 1.5 mg subcut QWEEK 08/02/23 Unknown History subcutaneous pen injector (Trulicity) rifaximin 550 mg tablet (Xifaxan) 550 mg PO BID 08/02/23 Unknown History oxycodone-acetaminophen 5 mg-325 1 tab PO Q6H PRN pain 5 days #16 05/11/24 Unknown Rx mg tablet (Percocet) tabs Allergy/AdvReac Type Severity Reaction Status Date / Time glycerin Allergy Anaphylaxis Verified 05/11/24 13:46 moxifloxacin HCl (From Allergy Anaphylaxis Verified 05/11/24 13:46 Avelox) cimetidine HCl (From Tagamet) AdvReac Pain in Verified 05/11/24 13:46 joints Family History Mother Cancer Hypertension Arthritis Ovarian cancer Father Arthritis Cancer Hypertension Myocardial infarction, Onset Age: 66 Sister Arthritis Cancer Hypertension Seizures Thyroid disorder Ulcer Ovarian cancer Brother Diabetes Hypertension Arthritis CVA (cerebral vascular accident), Onset Age: 64 Sister Ovarian cancer Surgical History History of left heart catheterization (10/28/19) History of gastric bypass (03/2018) History of cholecystectomy History of hysterectomy History of tonsillectomy History of colonoscopy History of carpal tunnel release History of esophagogastroduodenoscopy (EGD) Social History Smoking Status: Former smoker Tobacco: How many years used: 35 second hand exposure: No alcohol intake: never substance use type: does not use caffeine: No what type of physical activity do you participate in: none frequency: does not exercise seatbelt use: always ROS ROS ED ROS Narrative Denies recent illness. Constitutional Constitutional ED: Denies chills or fever(s) Eyes Eyes: Denies blurry vision ENT ENT ED: Denies ear pain Cardiovascular Cardiovascular: Denies chest pain Respiratory/Chest Respiratory/Chest: Denies cough or dyspnea Gastrointestinal Gastrointestinal: Denies abdominal pain Genitourinary Genitourinary ED: Denies dysuria or hematuria Musculoskeletal Musculoskeletal: Denies arthralgias or back pain Integumentary Denies abscess or Abrasions Neurologic Neurologic: Denies headache(s) or paresthesias Psychiatric Psychiatric: Denies anxiety or depression Endocrine Endocrinology: Denies polydipsia or polyphagia Hematologic/Lymphatic Hematologic/Lymphatic: Denies easy bleeding or easy bruising Allergic/Immunologic Allergic/Immunologic ED: Denies mouth swelling or tongue swelling EXAM Physical Exam Narrative Exam Narrative: Well-appearing 68-year-old female. Sitting upright in bed. No one is present in room. Vital signs are stable and afebrile. H EENT exam minor abrasion chin. No other facial trauma. Pupils round reactive light. No dental injury. Able to open close her mouth difficulty. No facial or jaw swelling. Neck nontender. Trachea midline. Back and spine nontender. Lungs clear equal and symmetrical bilaterally. Heart regular rhythm rate about 60 no murmur. Chest wall ribs nontender. Abdomen soft nontender. No peritoneal signs. Pelvic girdle intact. There is no shortening or rotation of either leg. Left lower leg hip, thigh, knee, lower leg ankle and foot are nontender. Normal range of motion. Normal dorsi plantarflexion. Right lower extremity the hip is nontender. There is no shortening or rotation. She has tenderness of her mid thigh but no deformity. She does not want to flex and extend her right knee or right hip due to pain in the thigh. Distally the right lower legs nontender. Ankles are nontender no deformity. Normal dorsi plantarflexion intact. Both lower extremities have normal sensation. 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 Neurologically she is awake alert no focal motor deficits. Const Vital Signs: 05/11/24 13:46 05/11/24 13:55 Temperature 97.8 F Temperature Source Oral Pulse Rate 62 Respiratory Rate 15 Respiratory Effort Normal Respiratory Depth Normal Respiratory Pattern Normal Blood Pressure 143/75 H Blood Pressure Mean 97 Pulse Ox 97 Oxygen Delivery Method Room Air Room Air Positive well nourished and well developed; Negative for cachectic, contractures or unkempt General Appearance ED: well developed and NAD; Negative for unkempt, cachectic or contractures Nutritional Appearance: Negative for cachectic HEENT Reports normocephalic HEENT Narrative: Minor abrasion underneath the chin. No malocclusion. No trouble opening closing her mouth. No dental injury. Negative for atraumatic Eyes PERRL and EOMs intact bilaterally Neck full ROM, no lymphadenopathy and supple General: Negative for tenderness Chest Wall inspection of chest normal and palpation of chest normal Resp normal respiratory effort, no retractions and clear to auscultation bilaterally Effort and Inspection: Negative for pain with movement Auscultation: Negative for rales, rhonchi, wheezes or diminished lung sounds Cardio regular rate, regular rhythm, S1 normal heart sound, S2 normal heart sound and no murmurs Rate: Negative for bradycardia or tachycardic Rhythm: Negative for abnormal rhythm Bruits: Negative for other GI non-tender, non-distended and no masses Inspection: Negative for abdominal distention Auscultation: normoactive bowel sounds Palpation: soft; Negative for guarding or rebound tenderness present Back/Spine no CVA tenderness Cervical Spine: Negative for cervical spine tenderness Lumbar Spine / Lower Back: Negative for lumbar spinal tenderness Extremity Extremity Narrative: Tenderness right mid thigh. No deformity. Decreased range of motion due to pain. No shortening or rotation. Neurovascularly intact. Neuro oriented x3, CN's II-XII intact bilaterally, moves all extremities and no focal motor deficits [place]ia Coma Scale: document GCS findings Spontaneous Obeys Commands Oriented 15 Sensorium / Orientation: alert, oriented to person, oriented to place and oriented to time; Negative for orientation impaired, confused or lethargic Motor Exam: strength 5/5 throughout Psych mental status grossly normal and thought process normal Appearance: Negative for unkempt Mood & Affect: Negative for depressed, anxious or tearful Skin Lesions: no lesions Rashes: no rashes MDM MDM MDM Narrative Medical decision making narrative: 68-year-old female fell injuring her right thigh. X-rays will be obtained on right hip and pelvis, femur and knee to rule out fracture or other etiologies. She does not want a thing for pain. Repeat exam patient is doing well at 3:30 PM. She will be given IM injection of morphine and p.o. Zofran. And then we will try to ambulate her. Repeat exam patient is doing better after the morphine. She ambulated well with a walker according to nursing staff. She is comfortable being discharged to home. She be given a prescription for Percocet for pain. And outpatient follow-up. History & Record Review Discussion w/independent historian: Patient Additional record(s) reviewed:: Prior inpatient record, Prior outpatient record, Prior ED visit and Prior labs Radiography Diagnostic Testing: Clinical Impression(s) from Imaging Studies Femur X-Ray 05/11/24 14:50 IMPRESSION: No definite acute or significant abnormality seen. Electronically Signed: Nikita Ceron MD at 15:46 EST , Knee X-Ray 05/11/24 14:50 IMPRESSION: No definite acute or significant abnormality seen. Electronically Signed: Nikita Ceron MD at 15:45 EST , Pelvis X-Ray 05/11/24 14:50 IMPRESSION: Normal x-ray examination of the pelvis. Electronically Signed: Nikita Ceron MD at 15:47 EST , Right hip x-ray pelvis 1 view shows no acute abnormality. Interpreted by myself. Chronic arthritic changes. Right femur x-ray 4 views interpreted myself shows no fracture or dislocation. Chronic arthritic changes. Right knee x-ray 4 views interpreted by myself shows no fracture or dislocation. Chronic arthritic changes. Discharge Plan Triage Chief Complaint: Fall ED Provider: Chris Bhatt Dx/Rx/DC Orders Clinical Impression: Fall, Contusion of knee, Muscle strain of right thigh Instructions: ED Contusion, Lower Extremity, ED Muscle Strain, Extremity Prescriptions: New oxycodone-acetaminophen [Percocet] 5-325 mg tablet 1 tab PO Q6H PRN (Reason: pain) 5 Days Qty: 16 0RF No Action alprazolam 0.5 mg tablet 0.5 mg PO QHS Patient Comments: TAKE 1 TABLET BY MOUTH AT BEDTIME NEEDED aspirin [Adult Aspirin Regimen] 81 mg tablet,delayed release (DR/EC) 81 mg PO DAILY cyanocobalamin (vitamin B-12) 1,000 mcg capsule 1,000 mcg PO DAILY levothyroxine 137 mcg tablet 137 mcg PO DAILY multivitamin Tablet 1 tab PO DAILY ergocalciferol (vitamin D2) 1,250 mcg (50,000 unit) capsule 1,250 mcg PO QWEEK Patient Comments: TAKE 1 CAPSULE BY MOUTH ONCE A WEEK topiramate 25 mg tablet 25 mg PO BID Patient Comments: TAKE 1 TABLET BY MOUTH TWICE DAILY metoprolol succinate [Toprol XL] 50 mg tablet extended release 24 hr 50 mg PO DAILY Qty: 90 3RF rosuvastatin 20 mg tablet 20 mg PO DAILY Xifaxan 550 mg tablet 550 mg PO BID Trulicity 1.5 mg/0.5 mL pen injector 1.5 mg subcut QWEEK pantoprazole 40 MG tablet 40 mg PO DAILY dorzolamide-timolol 10 ML drops 1 drp EACH EYE BID latanoprost 2.5 ML drops 1 drp OP QHS Primary Care Provider: Cody Perez Referrals: Cody Perez MD [Primary Care Provider] - 1 Week if not improving Activity Restrictions/Additional Instructions: Your x-rays look good. Nothing broken or dislocated. Ice to your knees. Percocet for pain. Follow-up if not improving. Sometimes there can be things that do not show up on the initial x-ray that need to be fredrick-rayed to find. Use the walker to get around. Print Language: Finnish Disposition Disposition: Home, Self Care
--- NOTE | 2024-05-11 14:50 | RAD_ITS ---
STUDY: X-RAY - PELVIS REASON FOR EXAM: Female, 68 years old. fall TECHNIQUE: One view of the pelvis was obtained. COMPARISON: None. FINDINGS: There is a non-specific bowel gas pattern. Normal visualized soft tissue structures. Normal bilateral iliac wings, sacroiliac joints and visualized sacrum. Normal visualized bilateral superior and inferior pubic rami. Normal pubic symphysis. Normal ischial tuberosities. Normal visualized right femoral head. Normal right acetabulum. Normal right hip joint. Normal visualized left femoral head. Normal left acetabulum. Normal left hip joint. RAD/Pelvis 1 or 2 Views IMPRESSION: Normal x-ray examination of the pelvis. Electronically Signed: Nikita Ceron MD at 15:47 EST ,
--- NOTE | 2024-05-11 14:50 | RAD_ITS ---
STUDY: X-RAY - RIGHT KNEE REASON FOR EXAM: Female, 68 years old. fall TECHNIQUE: 4 view(s) of the knee. COMPARISON: None. FINDINGS: Normal visualized distal femur. Normal visualized proximal tibia and fibula. Normal proximal tibiofibular articulation. There is no demonstrated fracture. Normal medial femorotibial compartment. Normal lateral femorotibial compartment. Normal patellofemoral articulation. There is no demonstrated joint effusion. There are atherosclerotic calcifications. RAD/Knee 4 or More Views IMPRESSION: No definite acute or significant abnormality seen. Electronically Signed: Nikita Ceron MD at 15:45 EST ,
--- NOTE | 2024-05-11 14:50 | RAD_ITS ---
STUDY: X-RAY - RIGHT FEMUR REASON FOR STUDY: Female, 68 years old. fall and pain TECHNIQUE: 2 view(s) of the femur. COMPARISON: None. FINDINGS: Normal visualized femur. Normal visualized soft tissue structure. There is no demonstrated fracture or destructive process. There are atherosclerotic vascular calcifications. RAD/Femur Min 2 Views IMPRESSION: No definite acute or significant abnormality seen. Electronically Signed: Nikita Ceron MD at 15:46 EST ,
[2024-05-11] MEDS: morphine 10 MG/ML Syringe IM (15:40)
[2024-05-11] MEDS: Ondansetron ODT 4 MG Tablet PO (15:40)
[2024-05-11 16:26] VITALS: BP 133/78; PULSE 62; RESP 16; TEMP 36.6; O2SAT 98
== END 2024-05-11 16:43 | disposition home or self-care (01) ==
PROVIDERS: Emergency Provider Emergency Medicine; PCP Family Medicine; Visit Provider Emergency Medicine
DX: S76.911A Strain of unspecified muscles, fascia and tendons at thigh level, right thigh, initial encounter (principal); E11.9 Type 2 diabetes mellitus without complications; S80.01XA Contusion of right knee, initial encounter; W01.10XA Fall on same level from slipping, tripping and stumbling with subsequent striking against unspecified object, initial encounter; I25.10 Atherosclerotic heart disease of native coronary artery without angina pectoris; R26.2 Difficulty in walking, not elsewhere classified; I10 Essential (primary) hypertension; E78.5 Hyperlipidemia, unspecified; Y92.242 Post office as the place of occurrence of the external cause; Z79.82 Long term (current) use of aspirin; Z79.85 Long-term (current) use of injectable non-insulin antidiabetic drugs; Z79.890 Hormone replacement therapy; Z79.899 Other long term (current) drug therapy; Z87.891 Personal history of nicotine dependence
CPT/HCPCS: 72170; 73552; 73564; 96372; 99282

== ENCOUNTER 2024-11-12 14:05 | Emergency (ER) | payer MEDICARE, SELFPAY ==
[2024-11-12] VITALS (7 sets, daily range): BP systolic 111–174; BP diastolic 62–87; PULSE 71–93; RESP 16–32; TEMP 36.6; O2SAT 94–100; BMI 36.2
--- NOTE | 2024-11-12 14:27 | EKG12_ITS ---
Test Reason : Blood Pressure : */* mmHG Vent. Rate : 72 BPM Atrial Rate : 72 BPM P-R Int : 222 ms QRS Dur : 82 ms QT Int : 380 ms P-R-T Axes : 48 -8 29 degrees QTcB Int : 416 ms Sinus rhythm with 1st degree A-V block Otherwise normal ECG Confirmed by Romeo Foster ([id number]), production editor SUSI ABBOTT ([id number]) on 11/13/2024 1:51:35 PM Referred By: Confirmed By: Romeo Foster
--- NOTE | 2024-11-12 14:27 | CT_ITS ---
PROCEDURE: CTA CHEST W/WO CONTRAST 11/12/2024 REASON FOR EXAM: DYSPNEA, increased shortness of breath, on chemotherapy TECHNIQUE: CTA CHEST W/WO CONTRAST Multiplanar Sagittal and Coronal images were obtained. 3D post processing was performed. CONTRAST: Isovue 370 VOLUME: 100 mL One or more dose reduction techniques were used (e.g., Automated exposure control, adjustment of the mA and/or kV according to patient size, use of iterative reconstruction technique). RADIATION DOSE SUMMARY: CTDlvol: 28.3 mGy DLP: 469.33 mGycm COMPARISON: None available. FINDINGS: Pulmonary vessels: No filling defects identified suspicious for pulmonary arterial emboli. Mildly prominent caliber of the central pulmonary vessels, may reflect pulmonary arterial hypertension. No CT evidence for right heart strain. Lungs/pleura: Bilateral interstitial pulmonary edema. Scattered patchy areas of ground-glass attenuation in both lungs may reflect mild alveolar edema versus infection/inflammation. No pneumothorax or pleural effusion. Few scattered punctate calcified granulomas. Central airways are patent. Mediastinum/nodes: No enlarged mediastinal, hilar, or axillary lymph nodes. Amorphous masslike density within the left superolateral breast soft tissues with multiple surgical clips, possibly related to breast malignancy or prior surgical procedure. Heart: Normal in size, no pericardial effusion. Mild-moderate coronary artery calcifications. Thoracic Aorta: Normal in course and caliber. Mild atherosclerotic disease. Upper Abdomen: Status post cholecystectomy. Scattered punctate calcified granulomas within the liver. Small hiatal hernia, and postoperative changes of gastric bypass. Bones: Mild multilevel degenerative changes of the spine. Diffuse qualitative osteopenia. No aggressive osseous lytic or blastic lesion identified. CT/CTA Chest W/WO Contrast IMPRESSION: 1. No pulmonary arterial emboli identified. 2. Interstitial pulmonary edema, and scattered patchy ground-glass attenuation throughout both lungs may represent alveolar edema, or possibly infectious/inflammatory etiologies. 3. No significant lymphadenopathy. Masslike density in the left breast soft ti ssues with multiple surgical clips, may be related to breast malignancy versus prior surgical procedure. Correlate with patient's clinical and mammographic history. Reading Location: [id number]
[2024-11-12] MEDS: 0.9% Normal Saline (500mL Bag) 500 ML 1000 ML IV (14:39)
[2024-11-12 14:52] LABS: Hematocrit 33.6 % (37-47); Hemoglobin 10.3 g/dL (12.0-15.0); Immature Granulocytes Count 0.170 X10^3/uL (0.0-0.0); Mean Corp Hgb Conc 30.7 g/dL (32-36); Mean Corpuscular Volume 80.8 fL (81-99); Mean Platelet Vol. 10.9 fl (6.2-12.0); NRBC Flagged by Analyzer 0.2 % (0-5); Platelet Count 254 K/mm3 (150-450); RBC Distribution Width CV 18.5 % (11.6-14.6); RBC Distribution Width SD 54.2 fl (35.1-43.9); Red Blood Count 4.16 M/mm3 (4.2-5.4); White Blood Count 13.3 K/mm3 (4.4-11.0)
[2024-11-12 15:05] LABS: Prothrombin Time (Protime)PT. 13.7 SECONDS (11.7-14.9)
[2024-11-12 15:06] LABS: Partial Thromboplast Time 26.6 Seconds (24.1-36.2)
--- NOTE | 2024-11-12 15:12 | EDS_ITS ---
HPI <Dr. Luke Jackson, DO - Last Filed: 11/14/24 22:11> History of Present Illness Chief Complaint: Shortness of Breath Informant: patient Narrative Narrative: Referred from her oncologist office for worsening dyspnea. Left-sided breast cancer diagnosed May lumpectomy. Finished chemo for rounds 3 weeks ago. Last 2 weeks increasing dyspnea worse with exertion. No cough no chest pains. No orthopnea no leg swelling. No history of PE or DVT. PE Risk Factors: Positive for Cancer; Negative for OCP + Smoking + > 35, Prior DVT or PE, Recent immobilization, Recent surgery or Recent travel Prior similar symptoms: No PFSH <Dr. Luke Jackson, DO - Last Filed: 11/14/24 22:11> PFSH Medical History Liver cirrhosis Chest pain Dyspnea on minimal exertion Elevated LFTs Osteoporosis Lung nodule Rapid palpitations BRCA2 gene mutation positive Atherosclerosis of coronary artery without angina pectoris PVD (peripheral vascular disease) CHOWDARY (nonalcoholic steatohepatitis) Pseudotumor cerebri Chronic pain of right upper extremity Nicotine dependence in remission Obstructive sleep apnea Nicotine dependence BRCA1 positive Essential hypertension Personal history of colonic polyps Diabetes mellitus Obesity Hyperlipidemia Hypothyroidism GERD (gastroesophageal reflux disease) Gastritis Depression Fibromyalgia Home Medications ?Medication ?Instructions ?Recorded ?Last Taken ?Type dorzolamide 22.3 mg-timolol 6.8 1 drp EACH EYE BID Unknown History mg/mL eye drops pantoprazole 40 mg tablet,delayed 40 mg PO DAILY 03/1410/28/19 History release latanoprost 0.005 % eye drops 1 drp OP QHS 04/28/18 Un known History cyanocobalamin (vitamin B-12) 1,000 mcg PO DAILY 10/21 Unknown History 1,000 mcg capsule levothyroxine 137 mcg tablet 137 mcg PO DAILY 10/22/19 10/28/19 History multivitamin 1 tab PO DAILY 10/22/19 Unkn own History alprazolam 0.5 mg tablet 0.5 mg PO QHS 10/23/19 Unkno wn History ergocalciferol (vitamin D2) 1,250 1,250 mcg PO QWEEK 0 09/27/21 Unknown History mcg (50,000 unit) capsule metoprolol succinate 50 mg 50 mg PO DAILY #90 tabs 10/13 Unknown Rx tablet,extended release 24 hr (Toprol XL) topiramate 25 mg tablet 25 mg PO BID 09/27/21 Unknow n History rosuvastatin 20 mg tablet 20 mg PO DAILY 01/20/22 Unkn own History rifaximin 550 mg tablet (Xifaxan) 550 mg PO BID Unknown History Allergy/AdvReac Type Severity Reaction Status Date / Time glycerin Allergy Anaphylaxis Verified 11/12/24 14:08 moxifloxacin HCl (From Allergy Anaphylaxis Verified 11/12/24 14:08 Avelox) acetaminophen AdvReac Other Verified 11/12/24 14:08 cimetidine HCl (From Tagamet) AdvReac Pain in Verified 11/12/24 14:08 joints Family History Mother Cancer Hypertension Arthritis Ovarian cancer Father Arthritis Cancer Hypertension Myocardial infarction, Onset Age: 66 Sister Arthritis Cancer Hypertension Seizures Thyroid disorder Ulcer Ovarian cancer Brother Diabetes Hypertension Arthritis CVA (cerebral vascular accident), Onset Age: 64 Sister Ovarian cancer Surgical History History of left heart catheterization (10/28/19) History of gastric bypass (03/2018) History of cholecystectomy History of hysterectomy History of tonsillectomy History of colonoscopy History of carpal tunnel release History of esophagogastroduodenoscopy (EGD) Social History (Updated 11/12/24 @ 14:12 by Yesika Barrera) household members: spouse housing: house Smoking Status: Former smoker Tobacco: How many years used: 35 second hand exposure: No alcohol intake: never substance use type: does not use caffeine: No what type of physical activity do you participate in: none frequency: does not exercise seatbelt use: always ROS <Dr. Luke Jackson, DO - Last Filed: 11/14/24 22:11> ROS ED Constitutional Constitutional ED: Denies chills, fever(s) or sweats ENT ENT ED: Denies sore throat Cardiovascular Cardiovascular: Denies chest pain, leg edema, palpitations or racing heartbeat Respiratory/Chest Respiratory/Chest: Reports dyspnea and dyspnea on exertion; Denies cough Gastrointestinal Gastrointestinal: Denies abdominal pain, diarrhea, nausea or vomiting Genitourinary Genitourinary ED: Denies dysuria, hematuria or urinary frequency Musculoskeletal Musculoskeletal: Denies back pain, extremity pain or neck pain Integumentary Denies rash or wounds Neurologic Neurologic: Denies headache(s), paresthesias or weakness EXAM <Dr. Luke Jackson, DO - Last Filed: 11/14/24 22:11> Physical Exam Const Vital Signs: 11/12/24 14:05 11/12/24 15:00 11/12/24 16:00 Temperature 97.9 F Temperature Source Oral Pulse Rate 93 73 73 Respiratory Rate 20 H 29 H 30 H Respiratory Effort Blood Pressure 174/75 H 112/62 111/69 Blood Pressure Mean 108 78 83 Pulse Ox 95 94 97 Oxygen Delivery Method Room Air 11/12/24 16:30 11/12/24 17:00 11/12/24 17:52 Temperature Temperature Source Pulse Rate 71 76 Respiratory Rate 32 H 27 H Respiratory Effort Short of Breath Blood Pressure 123/75 H 130/76 H Blood Pressure Mean 90 94 Pulse Ox 96 97 Oxygen Delivery Method Room Air Room Air 11/12/24 18:48 Temperature 97.8 F Temperature Source Pulse Rate 84 Respiratory Rate 16 Respiratory Effort Blood Pressure 127/87 H Blood Pressure Mean 100 Pulse Ox 100 Oxygen Delivery Method Positive well nourished and well developed General Appearance ED: well developed and NAD HEENT Reports moist mucous membranes normocephalic and atraumatic Eyes General Eye ED: Yes normal appearance of both eyes Neck full ROM Chest Wall Chest: Negative for tenderness Resp normal respiratory effort and normal air movement Effort and Inspection: symmetric chest movement; Negative for respiratory distress Cardio regular rate, regular rhythm and no murmurs Peripheral Pulses: pulses 2+ throughout GI normal to inspection, nondistended, normoactive bowel sounds and non-tender Palpation: Negative for guarding or rebound tenderness present Extremity normal to inspection General Extremety ED: Negative for edema or tenderness General Extremity: Negative for edema Neuro oriented x3 and no sensory deficits noted Sensorium / Orientation: awake and alert Skin no rashes or lesions noted and no wounds <Dr. Didier Monroy, DO - Last Filed: 11/12/24 22:41> Physical Exam Const Vital Signs: 11/12/24 14:05 11/12/24 15:00 11/12/24 16:00 Temperature 97.9 F Temperature Source Oral Pulse Rate 93 73 73 Respiratory Rate 20 H 29 H 30 H Respiratory Effort Blood Pressure 174/75 H 112/62 111/69 Blood Pressure Mean 108 78 83 Pulse Ox 95 94 97 Oxygen Delivery Method Room Air 11/12/24 16:30 11/12/24 17:00 11/12/24 17:52 Temperature Temperature Source Pulse Rate 71 76 Respiratory Rate 32 H 27 H Respiratory Effort Short of Breath Blood Pressure 123/75 H 130/76 H Blood Pressure Mean 90 94 Pulse Ox 96 97 Oxygen Delivery Method Room Air Room Air 11/12/24 18:48 Temperature 97.8 F Temperature Source Pulse Rate 84 Respiratory Rate 16 Respiratory Effort Blood Pressure 127/87 H Blood Pressure Mean 100 Pulse Ox 100 Oxygen Delivery Method MDM <Dr. Luke Jackson, DO - Last Filed: 11/14/24 22:11> MDM MDM Narrative Medical decision making narrative: Interventions / MDM: Differential diagnosis: Dyspnea, history of breast cancer with recent chemo Diagnosis considered but do not suspect: N/A My EKG interpretation: Sinus first-degree AV block rate of 72, no ST changes. Imaging independently reviewed and interpreted by myself: CT angiogram chest: External documents reviewed: N/A Test considered but not ordered:N/A ED course: Patient vital stable not hypoxic however cancer history with exertional dyspnea. No chest pains no cough. Moderate risk Wells criteria for PE. For workup initiated rule out PE with CT angiogram. EKG sinus rhythm. 1645: Labs are normal slight leukocytosis 13.3. Troponin and BNP negative. CT angio chest pending at this time. Patient signed out to oncoming physician. 60 patient Re-evaluation: stable Disposition discussed with patient/family/significant other: Case discussed with consulting clinician: N/A This note was generated with [employer] dictation software. It may contain incorrect words, spelling, and punctuation that were not noted in checking the note before signing. Lab Data Labs: Laboratory Results - last 24 hr 11/12/24 14:15 WBC 13.3 H RBC 4.16 L Hgb 10.3 L Hct 33.6 L MCV 80.8 L MCH 24.8 L MCHC 30.7 L RDW Std Deviation 54.2 H RDW Coeff of Meagan 18.5 H Plt Count 254 MPV 10.9 Immature Gran % (Auto) 1.300 H Neut % (Auto) 82.5 H Lymph % (Auto) 9.8 L [place] % (Auto) 5.3 Eos % (Auto) 0.5 Baso % (Auto) 0.6 Absolute Neuts (auto) 11.0 H Absolute Lymphs (auto) 1.30 Nucleated RBC % 0.2 PT 13.7 INR 1.0 APTT 26.6 Sodium 139 Potassium 3.8 Chloride 107 Carbon Dioxide 19.7 L Anion Gap 13 BUN 15 Creatinine 0.68 L Estim Creat Clear Calc 69.85 Est GFR (MDRD) Non-Af 93 BUN/Creatinine Ratio 21.3 H Glucose 98 Calcium 9.2 Troponin T High Sens 11 NT pro BNP II 102 Radiography Diagnostic Testing: Clinical Impression(s) from Imaging Studies Chest CTA 11/12/24 14:27 IMPRESSION: 1. No pulmonary arterial emboli identified. 2. Interstitial pulmonary edema, and scattered patchy ground-glass attenuation throughout both lungs may represent alveolar edema, or possibly infectious/inflammatory etiologies. 3. No significant lymphadenopathy. Masslike density in the left breast soft tissues with multiple surgical clips, may be related to breast malignancy versus prior surgical procedure. Correlate with patient's clinical and mammographic history. Reading Location: [id number] <Dr. Didier Monroy, DO - Last Filed: 11/12/24 22:41> MDM MDM Narrative Medical decision making narrative: Interventions / MDM: Differential diagnosis: Dyspnea, history of breast cancer with recent chemo Diagnosis considered but do not suspect: N/A My EKG interpretation: Sinus first-degree AV block rate of 72, no ST changes. Imaging independently reviewed and interpreted by myself: CT angiogram chest: External documents reviewed: N/A Test considered but not ordered:N/A ED course: Patient vital stable not hypoxic however cancer history with exertional dyspnea. No chest pains no cough. Moderate risk Wells criteria for PE. For workup initiated rule out PE with CT angiogram. EKG sinus rhythm. 1645: Labs are normal slight leukocytosis 13.3. Troponin and BNP negative. CT angio chest pending at this time. Patient signed out to oncoming physician. 60 patient Re-evaluation: stable Disposition discussed with patient/family/significant other: Case discussed with consulting clinician: N/A This note was generated with [employer] software. It may contain incorrect words, spelling, and punctuation that were not noted in checking the note before signing. Patient was turned over to me by Dr. Jackson @ [id number] Brief history: 69-year-old female history of breast cancer with recent chemotherapy presents with shortness breath for 2 weeks presents to primarily rule out a blood clot. No infectious symptoms noted initial history. Physical exam: Clear lungs Labs and images reviewed (if obtained): Labs images were reviewed EKG with normal sinus rhythm, left axis fusion, prolonged MA interval, no STEMI CBC with leukocytosis, mild anemia, no thrombocytopenia Coagulation studies neck BMP without significant electrolyte abnormalities, there is a borderline metabolic acidosis with a bicarb of 19.7 lab reference range of 21-32 likely not clinically significant, no elevation in anion gap noted High-sensitivity troponin is negative, no evidence of myocardial ischemia BNP within norm limit suggesting no increased ventricular stretch or heart f ailure CT of the chest shows no evidence of obvious PE. Patient was ambulated here in the emergency department and did not have significant hypoxia with ambulation. She is appropriate for discharge home. Unclear cause of dyspnea could be secondary to chronic illness/anemia multifactorial and/or deconditioning secondary to chemotherapy. MDM/plan: discharge home Lab Data Labs: Laboratory Results - last 24 hr 11/12/24 14:15 WBC 13.3 H RBC 4.16 L Hgb 10.3 L Hct 33.6 L MCV 80.8 L MCH 24.8 L MCHC 30.7 L RDW Std Deviation 54.2 H RDW Coeff of Meagan 18.5 H Plt Count 254 MPV 10.9 Immature Gran % (Auto) 1.300 H Neut % (Auto) 82.5 H Lymph % (Auto) 9.8 L [place] % (Auto) 5.3 Eos % (Auto) 0.5 Baso % (Auto) 0.6 Absolute Neuts (auto) 11.0 H Absolute Lymphs (auto) 1.30 Nucleated RBC % 0.2 PT 13.7 INR 1.0 APTT 26.6 Sodium 139 Potassium 3.8 Chloride 107 Carbon Dioxide 19.7 L Anion Gap 13 BUN 15 Creatinine 0.68 L Estim Creat Clear Calc 69.85 Est GFR (MDRD) Non-Af 93 BUN/Creatinine Ratio 21.3 H Glucose 98 Calcium 9.2 Troponin T High Sens 11 NT pro BNP II 102 Radiography Diagnostic Testing: Clinical Impression(s) from Imaging Studies Chest CTA 11/12/24 14:27 IMPRESSION: 1. No pulmonary arterial emboli identified. 2. Interstitial pulmonary edema, and scattered patchy ground-glass attenuation throughout both lungs may represent alveolar edema, or possibly infectious/inflammatory etiologies. 3. No significant lymphadenopathy. Masslike density in the left breast soft tissues with multiple surgical clips, may be related to breast malignancy versus prior surgical procedure. Correlate with patient's clinical and mammographic history. Reading Location: [facility] Discharge Plan Triage Chief Complaint: Shortness of Breath ED Provider: Luke Jackson Dx/Rx/DC Orders Clinical Impression: Dyspnea, Breast CA Prescriptions: No Action alprazolam 0.5 mg tablet 0.5 mg PO QHS Patient Comments: TAKE 1 TABLET BY MOUTH AT BEDTIME NEEDED cyanocobalamin (vitamin B-12) 1,000 mcg capsule 1,000 mcg PO DAILY levothyroxine 137 mcg tablet 137 mcg PO DAILY multivitamin Tablet 1 tab PO DAILY ergocalciferol (vitamin D2) 1,250 mcg (50,000 unit) capsule 1,250 mcg PO QWEEK Patient Comments: TAKE 1 CAPSULE BY MOUTH ONCE A WEEK topiramate 25 mg tablet 25 mg PO BID Patient Comments: TAKE 1 TABLET BY MOUTH TWICE DAILY metoprolol succinate [Toprol XL] 50 mg tablet extended release 24 hr 50 mg PO DAILY Qty: 90 3RF rosuvastatin 20 mg tablet 20 mg PO DAILY Xifaxan 550 mg tablet 550 mg PO BID pantoprazole 40 MG tablet 40 mg PO DAILY dorzolamide-timolol 10 ML drops 1 drp EACH EYE BID latanoprost 2.5 ML drops 1 drp OP QHS Primary Care Provider: Cody Perez Referrals: Cody Perez MD [Primary Care Provider] - Activity Restrictions/Additional Instructions: Thank you for trusting us with your care today! Your labs and images were reassuring. Specifically the CT scan of your chest showed no evidence of a blood clot in your lungs. Please return to the emergency department if your symptoms change or worsen. Please follow with your treating physician for further outpatient evaluation and management. Print Language: Lao Disposition Disposition: Home, Self Care Discharge Date/Time: 11/12/24 18:50
[2024-11-12 16:21] LABS: Troponin T High Sensitivity 11 ng/L (<=14)
[2024-11-12 16:24] LABS: Anion Gap 13 (5-15); BUN 15 mg/dL (4-19); BUN/Creat Ratio 21.3 RATIO (10-20); Calcium,Total 9.2 mg/dL (7.6-11.0); Carbon Dioxide 19.7 mmol/L (21.0-32.0); Chloride 107 mmol/L (98-108); Estimated Creatinine Clearance 69.85 ml/min (50-250); Glucose 98 mg/dL (70-99); Potassium 3.8 mmol/L (3.3-5.1); Pro- Brain NATRIURETIC PEPTIDE 102 pg/mL (<=900)
== END 2024-11-12 18:50 | disposition home or self-care (01) ==
PROVIDERS: Emergency Provider Emergency Medicine; PCP Family Medicine; Visit Provider Emergency Medicine
DX: R06.09 Other forms of dyspnea (principal); C50.912 Malignant neoplasm of unspecified site of left female breast; E11.9 Type 2 diabetes mellitus without complications; I25.10 Atherosclerotic heart disease of native coronary artery without angina pectoris; I10 Essential (primary) hypertension; I44.0 Atrioventricular block, first degree; E78.5 Hyperlipidemia, unspecified; E03.9 Hypothyroidism, unspecified; M79.7 Fibromyalgia; G47.33 Obstructive sleep apnea (adult) (pediatric); G89.29 Other chronic pain; F32.A Depression, unspecified; Z79.890 Hormone replacement therapy; Z79.899 Other long term (current) drug therapy; Z87.891 Personal history of nicotine dependence
CPT/HCPCS: 71275; 80048; 83880; 84484; 85025; 85610; 85730; 93005; 96360; 99284; Q9967; A4216